=== PATIENT | female | born 1970 | race Caucasian/White ===

== ENCOUNTER → 2023-10-15 11:01 | Outpatient (REF) | payer BC, SELFPAY | LOC: HWWDC 11:01 | PROVIDERS: ATTENDING PHYSICIAN Obstetrics & Gynecology Gynecology; FAMILY PHYSICIAN Physician Assistant Medical | DX: Z12.31 Encounter for screening mammogram for malignant neoplasm of breast (principal) | CPT/HCPCS: 77063; 77067 ==

== ENCOUNTER 2024-05-04 06:22 | Day surgery (SDC) | payer BC, SELFPAY | END 2024-05-04 15:15 | disposition home or self-care (01) | LOC: GI 06:22 | PROVIDERS: ATTENDING PHYSICIAN Internal Medicine Gastroenterology | DX: Z12.11 Encounter for screening for malignant neoplasm of colon (principal); R19.5 Other fecal abnormalities; K64.8 Other hemorrhoids; Q43.8 Other specified congenital malformations of intestine; D12.3 Benign neoplasm of transverse colon | CPT/HCPCS: 45385; 88305 ==

== ENCOUNTER → 2024-12-15 14:07 | Outpatient (REF) | payer BC, SELFPAY | LOC: HWWDC 14:07 | PROVIDERS: ATTENDING PHYSICIAN Obstetrics & Gynecology Gynecology; FAMILY PHYSICIAN Physician Assistant Medical | DX: Z12.31 Encounter for screening mammogram for malignant neoplasm of breast (principal) | CPT/HCPCS: 77063; 77067 ==